=== PATIENT | male | born 1965 | race Native Hawaiian/Other Pacific Islander ===

== ENCOUNTER 2022-04-03 19:20 | Emergency (ER) | payer OTHER ==
[~2022-04-03] VITALS: Ht 190.5 cm; Wt 151.0 kg
[2022-04-03 19:20] VITALS: BP 124/88; TEMP 97.8
[2022-04-03 20:03] LABS: PLATELET COUNT 203 K/uL (142-355)
[2022-04-04] MEDS ORDERED: ASPIRIN DR81 MG PO (08:43)
[2022-04-04] MEDS ORDERED: LIPITOR80 MG PO (08:44)
[2022-04-04] MEDS ORDERED: DULO60CA2 PO (08:45)
[2022-04-04] MEDS ORDERED: FENOFIBRATE160 MG PO (08:45)
[2022-04-04] MEDS ORDERED: JARDIANCE25 MG PO (08:46)
[2022-04-04] MEDS ORDERED: FURO20TA67 PO (08:46)
[2022-04-04] MEDS ORDERED: EUTHYROX112 MCG PO (08:47)
[2022-04-04] MEDS ORDERED: LISI5TAB10 PO (08:50)
[2022-04-04] MEDS ORDERED: MELATONIN3 M1 PO (08:50)
[2022-04-04] MEDS ORDERED: SEROQUEL200 MG PO (08:54)
[2022-04-04] MEDS ORDERED: METF100038 PO (08:56)
[2022-04-04] MEDS ORDERED: LEVE250T PO (08:56)
[2022-04-04] MEDS ORDERED: XARELTO2.5 MG PO (08:57)
[2022-04-04] MEDS ORDERED: IBU800 MG PO (08:58)
[2022-04-04] MEDS ORDERED: O2 (09:03)
[2022-04-04] MEDS ORDERED: HYDR5TAB9 PO (09:03)
[2022-04-04] MEDS ORDERED: ACET-689 PO (09:05)
== END 2022-04-03 20:40 | disposition still patient (30) ==
LOC: ED 19:20
PROVIDERS: Emergency Medicine Emergency Medical Services
DX: R46.89 Other symptoms and signs involving appearance and behavior (principal); Z11.52 Encounter for screening for COVID-19; Z04.6 Encounter for general psychiatric examination, requested by authority
CPT/HCPCS: 36415; 80053; 85027; 87635; 93005; 99283; U0003